=== PATIENT | male | born 1965 | race Caucasian/White ===

== ENCOUNTER → 2020-03-25 | Day surgery (SDC) | payer OTHER ==
--- NOTE | 2020-03-21 13:57 | Diagnostic Imaging Report ---
EXAMINATION: CHEST 2 VIEWS INDICATION: Pre-operative COMPARISON: None FINDINGS: LINES/TUBES:None LUNGS:The lungs are well-inflated. No focal consolidation or pulmonary edema. PLEURA:No pleural effusion or pneumothorax. MEDIASTINUM:The cardiomediastinal silhouette appears normal in size and shape. BONES/SOFT TISSUES:No acute osseous injury. ABDOMEN:No free air under the diaphragm. IMPRESSION: No focal pneumonia or pulmonary edema. Signed by: Dung Munguia MD on 03/21/2020 1:53 PM
[~2020-03-25] MED LIST: ADIPEX-P37.5 MG PO; AMLODIPINE BESY10 MG PO; BUPIVACAINE HCL 0.5% INJ 30 ML VIAL INJ ONE; CEFAZOLIN SOD 1 GM/NS 50ML 50 ML IV ONE; DEXAMETHASONE SOD PHOS INJ 4 MG/ML VIAL ONE; DEXILANT60 MG PO; FENTANYL CITRATE/PF 100MCG/2 ML INJ ONE; IBUPROFEN200 MG PO; KETOROLAC TROMETHAMINE 30 MG/ML VIAL ONE; LIDOCAINE HCL 2% LOCAL INJ 5 ML SDV VIAL INJ ONE; MIDAZOLAM HCL 2 MG/2 ML VIAL ONE; NEXIUM40 MG PO; ONDANSETRON HCL INJ 2MG/ML 2ML 2 MG/ML VIAL ONE; PROPOFOL IV EMULSION 10 MG/ML 20 ML VIAL ONE; SEVOFLURANE INHAL SOLN 250 ML PEN BTL ONE; TYLENOL EXTRA500 MG PO; VITAMIN B-121000 MCG PO
[2020-03-25 08:40] VITALS: BP 124/86
--- NOTE | 2020-03-25 08:49 | Operative Report ---
DATE OF PROCEDURE: 03/25/2020 SURGEON: Hardy Quevedo MD FRAME TABLE OPERATOR HELPER: Maurice Izquierdo, certified PA. PREOPERATIVE DIAGNOSIS: Recurrent left elbow olecranon bursitis. POSTOPERATIVE DIAGNOSIS: Recurrent left elbow olecranon bursitis. PROCEDURE: Excision left elbow olecranon bursa. INDICATIONS: The patient is a 54-year-old gentleman who has a recurrent left elbow olecranon bursitis. He has been treated conservatively with aspiration, but the bursa has returned on several occasions. He would like to have this definitively treated. The risk and benefits of surgical excision were explained. All of his questions were answered. He stated that he understood and wished to proceed. PROCEDURE IN DETAIL: The patient was brought to the operating room and placed under general anesthetic. He was positioned in the supine position with a slight bump on the left side. His left upper extremity was prepped and draped in a sterile manner. A preoperative time-out was performed. The extremity was exsanguinated and a proximal tourniquet was inflated to 250 mmHg. An incision was made directly over the olecranon bursa. This was carefully and circumferentially excised. This was a 3 cm x 3 cm thickened olecranon bursa. The mass was sent to pathology. The wound was thoroughly irrigated. The skin was closed with subcuticular Vicryl and interrupted nylon stitches. A 9 mL of 0.5% Marcaine with epinephrine was injected around the incision. A sterile bandage with a bolster was applied. A posterior splint was applied. The patient was extubated and transported to the recovery room in stable condition. There was no blood loss and all needle and sponge counts were correct. Hardy Quevedo MD DR/HOANG /[id number]
== END | disposition home or self-care (01) ==
LOC: OR 05:32
PROVIDERS: ATTEND Specialist
DX: M70.22 Olecranon bursitis, left elbow (principal); I10 Essential (primary) hypertension; K21.9 Gastro-esophageal reflux disease without esophagitis; K57.90 Diverticulosis of intestine, part unspecified, without perforation or abscess without bleeding; F17.210 Nicotine dependence, cigarettes, uncomplicated; Z01.810 Encounter for preprocedural cardiovascular examination; Z01.812 Encounter for preprocedural laboratory examination; Z01.818 Encounter for other preprocedural examination; Z11.59 Encounter for screening for other viral diseases
CPT/HCPCS: 24105; 71046; 87635; 88304; 88312; 93005; J0690; J1100; J1885; J2001; J2250; J2405; J2704; J3010

== ENCOUNTER → 2020-10-01 | Day surgery (SDC) | payer OTHER ==
[~2020-10-01] MED LIST changes: -BUPIVACAINE HCL 0.5% INJ 30 ML VIAL INJ ONE; -MIDAZOLAM HCL 2 MG/2 ML VIAL ONE
[2020-10-01 10:13] VITALS: BP 156/91
== END | disposition home or self-care (01) ==
LOC: OR 05:47
PROVIDERS: ATTEND Specialist
DX: G56.03 Carpal tunnel syndrome, bilateral upper limbs (principal); I10 Essential (primary) hypertension; K21.9 Gastro-esophageal reflux disease without esophagitis; F17.200 Nicotine dependence, unspecified, uncomplicated; Z01.810 Encounter for preprocedural cardiovascular examination; Z01.812 Encounter for preprocedural laboratory examination; Z20.828 Contact with and (suspected) exposure to other viral communicable diseases; Z68.36 Body mass index [BMI] 36.0-36.9, adult
CPT/HCPCS: 29848; 93005; J0690; J3010; U0002; J1100; J1885; J2001; J2405